=== PATIENT | female | born 1975 | race African-American/Black ===

== ENCOUNTER 2017-04-17 15:13 | Observation (INO) | payer OTHER ==
[2017-04-17] VITALS (7 sets, daily range): BP systolic 116–147; BP diastolic 72–86; PULSE 78–87; RESP 16–18; TEMP 98.2–99.4; O2SAT 97–100
[~2017-04-17] VITALS: Ht 170.2 cm; Wt 65.0 kg
[~2017-04-17 15:13] MED LIST: MAGICPED SWISH-SWAL; MEDR4PAK PO; PENI250T59 PO
[2017-04-17] MEDS ORDERED: SODIUM CHLORIDE 0.9% FLUSH 10 ML FLUSH IVF PRN (15:30)
--- NOTE | 2017-04-17 15:43 | PD ---
HPI Chief Complaint: Chest Pain Time Seen by Provider: 15:43 Travel History International Travel<30 days: No Contact w/Intl Traveler<30days: No Traveled to known affect area: No History of Present Illness HPI 41 year-old female with no significant medical history presents to emergency department for evaluation of chest pain. Chest pain is substernal, radiates to left axilla, intermittently over the last 2 weeks. Patient states she saw her primary care provider Dr. Butler who was concerned about this and advised she see a specialist. She has not been scheduled to see a specialist and she is not sure what type of specialist he was talking about. She states the pain has continued to occur whether she is at rest or doing activity around the house. This caused her to be concerned today so she came to the emergency department. It is not associated with shortness of breath, lightheaded sensation, or diaphoresis. She denies any recent illnesses, fever, chills. No cardiac history. She has no other symptoms to report. PFSH Past Medical History Diminished Hearing: No Immunizations Current: Yes Sickle Cell Disease: Yes (TRAIT) Tetanus Vaccination: Unknown Influenza Vaccination: No ?: Not : 4 Para: 4 Tubal Ligation: Yes Past Surgical History Abdominal Surgery: Yes (HAD A COLOSTOMY A INFANT,REVERSED,NO BOWEL PROBLEMS) Body Medical Devices: SICKLE CELL TRAIT Other Surgery: Yes (COLOSTOMY AN AND REVERSED) Social History Alcohol Use: No Tobacco Use: No Substance Use: No Allergies-Medications (Allergen,Severity, Reaction): Coded Allergies: Pollen Extract (Verified Allergy, Mild, SNEEZING, WATERY EYES, 04/17/17) Reported Meds & Prescriptions Reported Meds & Active Scripts Active No Active Prescriptions or Reported Medications Review of Systems Except as stated in HPI: all other systems reviewed are Neg Physical Exam Narrative GENERAL: Well-nourished female patient in no acute distress SKIN: Focused skin assessment warm/dry. HEAD: Atraumatic. Normocephalic. EYES: Pupils equal and round. No scleral icterus. No injection or drainage. ENT: No nasal bleeding or discharge. Mucous membranes pink and moist. NECK: Trachea midline. No JVD. CARDIOVASCULAR: Regular rate and rhythm. No murmur appreciated. RESPIRATORY: No accessory muscle use. Clear to auscultation. Breath sounds equal bilaterally. GASTROINTESTINAL: Abdomen soft, non-tender, nondistended. Hepatic and splenic margins not palpable. MUSCULOSKELETAL: No obvious deformities. No clubbing. No cyanosis. No edema. NEUROLOGICAL: Awake and alert. No obvious cranial nerve deficits. Motor grossly within normal limits. Normal speech. PSYCHIATRIC: Appropriate mood and affect; insight and judgment normal. Data Data Last Documented VS Vital Signs Date Time Temp Pulse Resp B/P Pulse Ox O2 Delivery O2 Flow Rate FiO2 04/17/17 16:07 87 18 118/72 99 04/17/17 16:07 Room Air 04/17/17 15:15 98.2 Orders Electrocardiogram (04/17/17 ) Basic Metabolic Panel (Bmp) (04/17/17 15:25) Ckmb (Isoenzyme) Profile (04/17/17 15:25) Complete Blood Count With Diff (04/17/17 15:25) Magnesium (Mg) (04/17/17 15:25) Prothrombin Time / Inr (Pt) (04/17/17 15:25) Act Partial Throm Time (Ptt) (04/17/17 15:25) Troponin I (04/17/17 15:25) Chest, Single Ap (04/17/17 15:25) Ecg Monitoring (04/17/17 15:25) Bilateral Bp Monitoring (04/17/17 15:25) Iv Access Insert/Monitor (04/17/17 15:25) Oximetry (04/17/17 15:25) Oxygen Administration (04/17/17 15:25) Sodium Chloride 0.9% Flush (Ns Flush) (04/17/17 15:30) CKMB (04/17/17 17:16) CKMB% (04/17/17 17:16) Admit Order (Ed Use Only) (04/17/17 18:30) Activity Bed Rest With Brp (04/17/17 18:30) Vital Signs (Adult) Q4H (04/17/17 18:30) Cardiac Rhythm .As Directed (04/17/17 18:30) Notify Dr: Other .PRN (04/17/17 18:30) Notify Parameters (04/17/17 18:30) Resp Oxygen Nasal Cannula (04/17/17 ) Diet Npo (04/18/17 Breakfast) Diet Heart Healthy (7/8/17 Dinner) Ckmb (Isoenzyme) Profile (04/17/17 20:15) Ckmb (Isoenzyme) Profile (04/17/17 23:15) Troponin I (04/17/17 20:15) Troponin I (04/17/17 23:15) Electrocardiogram (04/17/17 19:30) Electrocardiogram (04/17/17 22:30) ^ Obtain (04/17/17 18:30) Sodium Chloride 0.9% Flush (Ns Flush) (04/17/17 18:30) Sodium Chloride 0.9% Flush (Ns Flush) (04/17/17 21:00) Acetaminophen (Tylenol) (04/17/17 18:30) Ondansetron Inj (Zofran Inj) (04/17/17 18:30) Running Specialist / Telemetry CHARI.Q8H (04/17/17 18:30) Rohan Bilateral/Knee High CHARI.QSHIFT (04/17/17 18:30) CKMB (04/17/17 19:28) CKMB% (04/17/17 19:28) Labs Laboratory Tests Test 04/17/17 04/17/17 17:04 17:16 Prothrombin Time 10.7 SEC Prothromb Time International 1.0 RATIO Ratio Activated Partial 26.3 SEC Thromboplast Time White Blood Count 9.0 TH/MM3 Red Blood Count 4.63 MIL/MM3 Hemoglobin 12.6 GM/DL Hematocrit 38.3 % Mean Corpuscular Volume 82.7 FL Mean Corpuscular Hemoglobin 27.3 PG Mean Corpuscular Hemoglobin 33.0 % Concent Red Cell Distribution Width 17.1 % Platelet Count 148 TH/MM3 Mean Platelet Volume 9.6 FL Neutrophils (%) (Auto) 57.6 % Lymphocytes (%) (Auto) 27.7 % Monocytes (%) (Auto) 10.1 % Eosinophils (%) (Auto) 4.1 % Basophils (%) (Auto) 0.5 % Neutrophils # (Auto) 5.2 TH/MM3 Lymphocytes # (Auto) 2.5 TH/MM3 Monocytes # (Auto) 0.9 TH/MM3 Eosinophils # (Auto) 0.4 TH/MM3 Basophils # (Auto) 0.0 TH/MM3 CBC Comment AUTO DIFF Differential Comment AUTO DIFF CONFIRMED Sodium Level 141 MEQ/L Potassium Level 4.1 MEQ/L Chloride Level 107 MEQ/L Carbon Dioxide Level 25.3 MEQ/L Anion Gap 9 MEQ/L Blood Urea Nitrogen 8 MG/DL Creatinine 0.79 MG/DL Estimat Glomerular Filtration 98 ML/MIN Rate Random Glucose 70 MG/DL Calcium Level 9.5 MG/DL Magnesium Level 1.7 MG/DL Total Creatine Kinase 181 U/L Creatine Kinase MB 1.6 NG/ML Troponin I LESS THAN 0.02 NG/ML MDM Medical Decision Making Medical Screen Exam Complete: Yes Emergency Medical Condition: Yes Medical Record Reviewed: Yes Differential Diagnosis Chest wall pain versus pleurisy versus costochondritis versus ACS Narrative Course 41 year-old female presents to department for evaluation. Patient appears without distress. She is currently not having any pain. EKG is without acute abnormality. Lab work is without acute concern. Troponin is less than 0.02. Discussed the patient with my attending physician. She agrees that it is the patient's best interest for further evaluation and observation of the chest pain center. Plan is discussed with the patient and she is in agreement with the plan of care. Diagnosis Primary Impression: Chest pain Qualified Code: R07.9 - Chest pain, unspecified type Admitting Information Admitting Physician Requests: Observation Scripts No Active Prescriptions or Reported Meds Condition: Stable Ronel Millan Apr 17, 2017 15:43
--- NOTE | 2017-04-17 16:20 | RADRPT ---
EXAM DATE/TIME: 04/17/2017 15:51 [facility] COMPARISON: No previous studies available for comparison. INDICATIONS : Chest pain and short of breath. MEDICAL HISTORY : Sickle cell trait. SURGICAL HISTORY : None. ENCOUNTER: Initial ACUITY: 3 days PAIN SCORE: 9/10 LOCATION: Bilateral chest FINDINGS: A single view of the chest demonstrates the lungs to be symmetrically aerated without evidence of mas s, infiltrate or effusion. The cardiomediastinal contours are unremarkable. Osseous structures are intact. CONCLUSION: No acute disease. Rashawn Norwood MD on April 17, 2017 at 16:19 Board Certified Radiologist. This report was verified electronically.
[2017-04-17 17:31] LABS: APTT (PATIENT) 26.3 SEC (24.3-30.1); PROTHROMBIN TIME - PATIENT 10.7 SEC (9.8-11.6)
[2017-04-17 17:57] LABS: AUTOMATED NEUTROPHIL # 5.2 TH/MM3 (1.8-7.7); BASOPHIL % 0.5 % (0.0-2.0); EOSINOPHIL # 0.4 TH/MM3 (0-0.4); EOSINOPHIL % 4.1 % (0.0-4.0); HEMATOCRIT 38.3 % (35.0-46.0); LYMPH % 27.7 % (9.0-44.0); LYMPHOCYTE # 2.5 TH/MM3 (1.0-4.8); MEAN CELL VOLUME 82.7 FL (80.0-100.0); MEAN CORPUSCULAR HEMOGLOBIN 27.3 PG (27.0-34.0); MONO % 10.1 % (0.0-8.0); NEUT % 57.6 % (16.0-70.0); PLATELET COUNT 148 TH/MM3 (150-450); RED BLOOD COUNT 4.63 MIL/MM3 (4.00-5.30); RED CELL DISTRIBUTION WIDTH 17.1 % (11.6-17.2)
[2017-04-17 17:59] LABS: HEMO FLAGS AUTO DIFF
[2017-04-17 18:15] LABS: ANION GAP 9 MEQ/L (5-15); BICARBONATE 25.3 MEQ/L (21.0-32.0); BLOOD UREA NITROGEN 8 MG/DL (7-18); CHLORIDE 107 MEQ/L (98-107); CREATINE KINASE 181 U/L (26-192); GLOMERULAR FILTRATION RATE 98 ML/MIN (>89); MAGNESIUM 1.7 MG/DL (1.5-2.5); POTASSIUM 4.1 MEQ/L (3.5-5.1); SODIUM (NA) 141 MEQ/L (136-145)
[2017-04-17 18:28] LABS: CKMB 1.6 NG/ML (0.5-3.6)
[2017-04-17] MEDS ORDERED: SODIUM CHLORIDE 0.9% FLUSH 10 ML FLUSH IV FLUSH PRN (18:30)
[2017-04-17] MEDS ORDERED: ACETAMINOPHEN 500 MG CPLT PO PRN (18:30)
[2017-04-17] MEDS ORDERED: ONDANSETRON HCL 4 MG/2 ML VIAL IV PRN (18:30)
[2017-04-17 18:33] LABS: SCAN/DIFF AUTO DIFF CONFIRMED
[2017-04-17 20:29] LABS: CREATINE KINASE 143 U/L (26-192)
[2017-04-17] MEDS: SODIUM CHLORIDE 0.9% FLUSH 10 ML FLUSH IV FLUSH SCH (20:32)
[2017-04-17 20:42] LABS: CKMB 1.2 NG/ML (0.5-3.6)
--- NOTE | 2017-04-17 21:41 | EKG ---
Date Performed: 04/17/2017 Time Performed: 19:24:31 PTAGE: 41 years EKG: Sinus rhythm NORMAL ECG PREVIOUS TRACING : 04/17/2017 15.51 Compared to prior tracing no significant change DOCTOR: Ayan Neal Interpretating Date/Time 04/17/2017 21:40:50
--- NOTE | 2017-04-17 21:45 | EKG ---
Date Performed: 04/17/2017 Time Performed: 15:51:40 PTAGE: 41 years EKG: Sinus rhythm NORMAL ECG PREVIOUS TRACING : 12/10/2003 09.07 Compared to prior tracing no significant change DOCTOR: Ayan Neal Interpretating Date/Time 04/17/2017 21:44:58
[2017-04-17 23:18] LABS: CREATINE KINASE 137 U/L (26-192)
[2017-04-17 23:30] LABS: CKMB 1.5 NG/ML (0.5-3.6)
[2017-04-18 00:45] VITALS: BP 132/77; PULSE 93; RESP 19; TEMP 98.4; O2SAT 99
[2017-04-18 04:22] VITALS: BP 109/66; PULSE 82; RESP 15; TEMP 99; O2SAT 99
[2017-04-18 07:15] VITALS: O2SAT 98
[2017-04-18 07:38] VITALS: PULSE 75
[2017-04-18 08:10] VITALS: BP 102/66; PULSE 87; RESP 17; TEMP 98.5; O2SAT 98
[2017-04-18] MEDS: SODIUM CHLORIDE 0.9% FLUSH 10 ML FLUSH IV FLUSH SCH (08:59)
--- NOTE | 2017-04-18 09:34 | HHI.HP ---
HPI Primary Care Physician Chris Butler MD Past Family Social History Allergies: Coded Allergies: Pollen Extract (Verified Allergy, Mild, SNEEZING, WATERY EYES, 04/17/17) Reported Medications Reported Meds & Active Scripts Active No Active Prescriptions or Reported Medications Active Ordered Medications Current Medications Medications (Trade) Dose Ordered Sig/Paige Route Start Time Stop Time Status Last Admin (NS Flush) 2 ml UNSCH PRN IVF 04/17/17 15:30 (NS Flush) 2 ml UNSCH PRN IV FLUSH 04/17/17 18:30 (NS Flush) 2 ml BID IV FLUSH 04/17/17 21:00 04/18/17 08:59 (Tylenol) 500 mg Q4H PRN PO 04/17/17 18:30 (Zofran Inj) 4 mg Q6H PRN IV 04/17/17 18:30 Physical Exam Vital Signs Vital Signs Date Time Temp Pulse Resp B/P Pulse Ox O2 Delivery O2 Flow Rate FiO2 04/18/17 08:10 98.5 87 17 102/66 98 04/18/17 04:22 99.0 82 15 109/66 99 04/18/17 00:45 98.4 93 19 132/77 99 04/17/17 20:15 78 04/17/17 20:04 99.4 85 16 123/86 97 04/17/17 19:50 100 04/17/17 19:10 80 18 118/79 99 Room Air 04/17/17 16:07 87 18 118/72 99 04/17/17 16:07 99 Room Air 04/17/17 16:07 99 Room Air 04/17/17 15:32 85 18 116/74 98 Room Air 04/17/17 15:32 83 18 98 Room Air 04/17/17 15:15 98.2 81 16 147/77 98 Laboratory Laboratory Tests Test 04/17/17 04/17/17 04/17/17 04/17/17 17:04 17:16 19:28 22:30 Prothrombin Time 10.7 Prothromb Time International 1.0 Ratio Activated Partial 26.3 Thromboplast Time White Blood Count 9.0 Red Blood Count 4.63 Hemoglobin 12.6 Hematocrit 38.3 Mean Corpuscular Volume 82.7 Mean Corpuscular Hemoglobin 27.3 Mean Corpuscular Hemoglobin 33.0 Concent Red Cell Distribution Width 17.1 Platelet Count 148 Mean Platelet Volume 9.6 Neutrophils (%) (Auto) 57.6 Lymphocytes (%) (Auto) 27.7 Monocytes (%) (Auto) 10.1 Eosinophils (%) (Auto) 4.1 Basophils (%) (Auto) 0.5 Neutrophils # (Auto) 5.2 Lymphocytes # (Auto) 2.5 Monocytes # (Auto) 0.9 Eosinophils # (Auto) 0.4 Basophils # (Auto) 0.0 CBC Comment AUTO DIFF Differential Comment AUTO DIFF CONFIRMED Sodium Level 141 Potassium Level 4.1 Chloride Level 107 Carbon Dioxide Level 25.3 Anion Gap 9 Blood Urea Nitrogen 8 Creatinine 0.79 Estimat Glomerular Filtration 98 Rate Random Glucose 70 Calcium Level 9.5 Magnesium Level 1.7 Total Creatine Kinase 181 143 137 Creatine Kinase MB 1.6 1.2 1.5 Troponin I LESS THAN 0.02 LESS THAN 0.02 LESS THAN 0.02 Result Diagram: 04/17/17 1716 04/17/17 171 Assessment and Plan Assessment and Plan Patient seen after review with PA. S: Two weeks atypical mid chest pain with no precipitating or rel factors and no assoc. sx. Works at [employer], sometimes strenuous. O: As reported but severe tenderness along costo condral jcts. Has RO for cardiac A: Classic costo-condritis P: Discussed treatment with NSAIDS, heat/cold OK to discharge to FU with PCP Clemente Luna MD Apr 18, 2017 09:34
--- NOTE | 2017-04-18 09:35 | HHI.HP ---
[facility] Primary Care Physician Chris Butler MD Chief Complaint Chest pain History of Present Illness This is a 41-year-old female that presents to ED via private vehicle with family with a complaint of 2 weeks of intermittent chest discomfort. When asked to describe the pain she states "a lot of pain." She states nothing in particular seems bring on the discomfort. One time she was short of breath. No nausea or diaphoresis. Cannot recall any injuries a recent illnesses. Denies recent travel. Denies . She saw nothing to make the pain better or worse when it occurs. She states it occurs it last for a few minutes. Review of Systems General: Patient denies fevers, chills recent, and recent travel HEENT: Patient denies headache, sore throat, difficulty swallowing. Cardiovascular: Has the chest discomfort as mentioned above. Denies sensation of heart beating rapidly or irregularly. No syncope. Respiratory: She had one episode of shortness of breath. Denies inspirational chest discomfort. Denies coughing wheezing or hemoptysis. GI: Patient denies nausea, vomiting, diarrhea, abdominal pain, bloody stools. Musculoskeletal: Patient denies joint pain or edema. Denies calf pain or edema. Neurovascular: Patient denies numbness, tingling, weakness in extremities. Denies headache. Endocrine: Denies polyuria and polydipsia. Hematologic: Denies easy bruising. Skin: Denies rash or itching. Past Family Social History Allergies: Coded Allergies: Pollen Extract (Verified Allergy, Mild, SNEEZING, WATERY EYES, 04/17/17) Past Medical History Denies hypertension, hyperlipidemia, diabetes, and CAD. Past Surgical History Tubal ligation. Reported Medications Reported Meds & Active Scripts Active No Active Prescriptions or Reported Medications Active Ordered Medications Current Medications Medications (Trade) Dose Ordered Sig/Paige Route Start Time Stop Time Status Last Admin (NS Flush) 2 ml UNSCH PRN IVF 04/17/17 15:30 (NS Flush) 2 ml UNSCH PRN IV FLUSH 04/17/17 18:30 (NS Flush) 2 ml BID IV FLUSH 04/17/17 21:00 04/18/17 08:59 (Tylenol) 500 mg Q4H PRN PO 04/17/17 18:30 (Zofran Inj) 4 mg Q6H PRN IV 04/17/17 18:30 Family History Denies family history of CAD. Social History Patient is a nonsmoker. Denies alcohol or illicit drugs. Physical Exam Vital Signs Vital Signs Date Time Temp Pulse Resp B/P Pulse Ox O2 Delivery O2 Flow Rate FiO2 04/18/17 08:10 98.5 87 17 102/66 98 04/18/17 04:22 99.0 82 15 109/66 99 04/18/17 00:45 98.4 93 19 132/77 99 04/17/17 20:15 78 04/17/17 20:04 99.4 85 16 123/86 97 04/17/17 19:50 100 04/17/17 19:10 80 18 118/79 99 Room Air 04/17/17 16:07 87 18 118/72 99 04/17/17 16:07 99 Room Air 04/17/17 16:07 99 Room Air 04/17/17 15:32 85 18 116/74 98 Room Air 04/17/17 15:32 83 18 98 Room Air 04/17/17 15:15 98.2 81 16 147/77 98 Physical Exam GENERAL: This is a well-nourished, well-developed patient, in no apparent distress. Patient speaks in clear complete sentences. Patient is pleasant. Patient was examined with a female florist at bedside. HEENT: Head is atraumatic and normocephalic. Neck is supple without lymphadenopathy and trachea is midline. No JVD or carotid bruits. CARDIOVASCULAR: Regular rate and rhythm without murmurs, gallops, or rubs. RESPIRATORY: Clear to auscultation. Breath sounds equal bilaterally. No wheezes , rales, or rhonchi. Chest wall is tender just left of the sternum reproducing the same discomfort that she has been having. No use of accessory muscles. GASTROINTESTINAL: Abdomen is nontender, nondistended. Abdomen soft. No obvious pulsatile mass or bruit. No CVA tenderness. Strong femoral pulses bilaterally. Normal bowel sounds in all quadrants. MUSCULOSKELETAL: Patient is moving upper and lower extremities freely. No calf tenderness or edema, no Homans sign. Strong pulses in upper and lower extremities. NEUROLOGICAL: Patient is alert and oriented. Cranial nerves 2-12 are grossly intact. No focal deficits and speech is clear. SKIN: No rash and turgor is normal. Laboratory Laboratory Tests Test 04/17/17 04/17/17 04/17/1717 17:04 17:16 19:28 22:30 Prothrombin Time 10.7 Prothromb Time International 1.0 Ratio Activated Partial 26.3 Thromboplast Time White Blood Count 9.0 Red Blood Count 4.63 Hemoglobin 12.6 Hematocrit 38.3 Mean Corpuscular Volume 82.7 Mean Corpuscular Hemoglobin 27.3 Mean Corpuscular Hemoglobin 33.0 Concent Red Cell Distribution Width 17.1 Platelet Count 148 Mean Platelet Volume 9.6 Neutrophils (%) (Auto) 57.6 Lymphocytes (%) (Auto) 27.7 Monocytes (%) (Auto) 10.1 Eosinophils (%) (Auto) 4.1 Basophils (%) (Auto) 0.5 Neutrophils # (Auto) 5.2 Lymphocytes # (Auto) 2.5 Monocytes # (Auto) 0.9 Eosinophils # (Auto) 0.4 Basophils # (Auto) 0.0 CBC Comment AUTO DIFF Differential Comment AUTO DIFF CONFIRMED Sodium Level 141 Potassium Level 4.1 Chloride Level 107 Carbon Dioxide Level 25.3 Anion Gap 9 Blood Urea Nitrogen 8 Creatinine 0.79 Estimat Glomerular Filtration 98 Rate Random Glucose 70 Calcium Level 9.5 Magnesium Level 1.7 Total Creatine Kinase 181 143 137 Creatine Kinase MB 1.6 1.2 1.5 Troponin I LESS THAN 0.02 LESS THAN 0.02 LESS THAN 0.02 Result Diagram: 04/17/17171504/17/171715 Assessment and Plan Assessment and Plan * Atypical chest pain: Patient has had serial cardiac enzymes and EKGs for ruling out purposes. She has been seen by Dr. Luna of cardiology in the chest pain center. Her discomfort is of musculoskeletal etiology and will be discharged home at this time with instructions to follow-up with her local primary care physician. Patient is stable at this time. She is agreeable to this plan. Austyn Escamilla Apr 18, 2017 09:35
--- NOTE | 2017-04-18 09:38 | HHI.DCPOC ---
Discharge Care Plan Diagnosis: (1) Chest pain, atypical Goals to Promote Your Health * To prevent worsening of your condition and complications * To maintain your health at the optimal level Directions to Meet Your Goals Take your medications as prescribed Follow your dietary instruction Follow activity as directed Keep your appointments as scheduled Take your immunizations and boosters as scheduled If your symptoms worsen call your PCP, if no PCP go to Urgent Care Center or Emergency Room Smoking is Dangerous to Your Health. Avoid second hand smoke Call the 24-hour hour crisis hotline for domestic abuse at Austyn Escamilla Apr 18, 2017 09:38
--- NOTE | 2017-04-18 12:10 | EKG ---
Date Performed: 04/17/2017 Time Performed: 22:41:20 PTAGE: 41 years EKG: Sinus rhythm NORMAL ECG PREVIOUS TRACING : 04/17/2017 19.24 DOCTOR: Clemente Luna Interpretating Date/Time 04/18/2017 12:08:57
== END 2017-04-18 11:20 | disposition home or self-care (01) ==
LOC: NEPE 15:13 → NEDA 18:33 → NEPFCDU 19:49
PROVIDERS: ADMIT Internal Medicine Interventional Cardiology; ATTEND Internal Medicine Interventional Cardiology
DX: R07.89 Other chest pain (principal); R06.02 Shortness of breath; R07.2 Precordial pain; D57.3 Sickle-cell trait
CPT/HCPCS: 71010; 80048; 82550; 82552; 83735; 84484; 85025; 85610; 85730; 93005; 99285; G0378

== ENCOUNTER 2017-09-08 09:42 | Emergency (ER) | payer OTHER ==
[~2017-09-08] VITALS: Ht 167.6 cm; Wt 60.0 kg
[2017-09-08] MEDS ORDERED: IOHEXOL 350 MG/ML 10 ML VIAL (for RAD DIAG) IVCONTRAST ONE (09:43)
[2017-09-08 09:57] VITALS: BP 134/84; PULSE 123; RESP 22; TEMP 101.2; O2SAT 99
--- NOTE | 2017-09-08 11:01 | PD ---
HPI Chief Complaint: Cold / Flu Symptoms Time Seen by Provider: 10:59 Travel History International Travel<30 days: No Contact w/Intl Traveler<30days: No Traveled to known affect area: No History of Present Illness HPI 41 YO F presents to the ED via EMS for evaluation of 6 week history of sore throat, nonproductive cough. She states that today she began to experience accompanying chest pain, described as a tightness, worsened with breathing which prompted her visit today. She endorses fevers and chills. She endorses difficulty swallowing. He endorses nausea. She endorses palpitations. She states her cough is nonproductive. She endorses previous similar episodes of palpitations, chest pain and breathing difficulties. She had a cardiac workup a few months ago that was negative. She endorses receiving the flu vaccine this year. The patient was prescribed clindamycin but has been noncompliant with the medication. PFSH Past Medical History Medical History: Denies Significant Hx Cardiovascular Problems: No Diminished Hearing: No Immunizations Current: Yes Sickle Cell Disease: Yes (TRAIT) Tetanus Vaccination: < 5 Years ?: Not : 4 Para: 4 Tubal Ligation: Yes Past Surgical History Abdominal Surgery: Yes (HAD A COLOSTOMY A ,REVERSED,NO BOWEL PROBLEMS) Body Medical Devices: SICKLE CELL TRAIT Other Surgery: Yes (COLOSTOMY AN INFANT AND REVERSED) Social History Alcohol Use: No Tobacco Use: No Substance Use: No Allergies-Medications (Allergen,Severity, Reaction): Coded Allergies: pollen extracts (Unverified Allergy, Mild, SNEEZING, WATERY EYES, 09/08/17 ) Reported Meds & Prescriptions Reported Meds & Active Scripts Active Magic Mouthwash Adult Liq (Multi-Ingredient Mouthwash/Gargle) 120 Ml Susp 10 Ml SWISH-SPIT ACHS 5 Days Each 5mL contains: Nystatin 200,000units, Diphenhydramine 4.25mg, Viscous Lidocaine 10mg, Hinson syrup 0.8 mL Proair Hfa 8.5 GM Inh (Albuterol Sulfate) 90 Mcg/Act Aer 1 Puff INH Q4H PRN 108 mcg/actuation Prednisone 20 Mg Tab 20 Mg PO ONCE Penicillin V Potassium 500 Mg Tab 500 Mg PO BID 10 Days Review of Systems Except as stated in HPI: all other systems reviewed are Neg Physical Exam Narrative GENERAL: Well-nourished, well-developed ill-appearing, hyperventilating black female. PSYCHIATRIC: Anxious SKIN: Warm and dry. HEAD: Normocephalic. Atraumatic. EYES: No scleral icterus. No injection or drainage. PERRLA. EOMI. ENT: Pearly issa tympanic membranes bilaterally. Nasal mucosa is moist. Posterior oropharynx erythematous, edematous with seema blood noted. Mallampati class III. NECK: Supple, trachea midline. No JVD. Tender left submandibular lymphadenopathy. CARDIOVASCULAR: Regular rate and rhythm without murmurs, gallops, or rubs. RESPIRATORY: Breath sounds equal bilaterally. There are mild end expiratory wheezing. No accessory muscle use. GASTROINTESTINAL: Abdomen soft, non-tender, nondistended. + Bowel sounds MUSCULOSKELETAL: No cyanosis, or edema. Noted to ambulate with a normal gait. BACK: Nontender without obvious deformity. No CVA tenderness. Data Data Last Documented VS Vital Signs Date Time Temp Pulse Resp B/P (MAP) Pulse Ox O2 Delivery O2 Flow Rate FiO2 09/08/17 15:39 (90) 09/08/17 15:39 99.5 102 20 98 Room Air Orders Orders Sepsis Workup Initiated (09/08/17 ) Electrocardiogram (09/08/17 11:24) Complete Blood Count With Diff (09/08/17 11:24) Comprehensive Metabolic Panel (09/08/17 11:24) Prothrombin Time / Inr (Pt) (09/08/17 11:24) Act Partial Throm Time (Ptt) (09/08/17 11:24) Lactic Acid Sepsis Protocol (09/08/17 11:24) Magnesium (Mg) (09/08/17 11:24) Ckmb (Isoenzyme) Profile (09/08/17 11:24) Troponin I (09/08/17 11:24) Urinalysis - C+S If Indicated (09/08/17 11:24) Influenzae A/B Antigen (09/08/17 11:24) Blood Culture (09/08/17 11:24) Chest, Single Ap (09/08/17 11:24) Blood Glucose (09/08/17 11:24) Ecg Monitoring (09/08/17 11:24) Iv Access Insert/Monitor (09/08/17 11:24) Oximetry (09/08/17 11:24) Morphine Inj (Morphine Inj) (09/08/17 11:30) Ondansetron Inj (Zofran Inj) (09/08/17 11:30) Sodium Chlor 0.9% 1000 Ml Inj (Ns 1000 M (09/08/17 11:24) Sodium Chlor 0.9% 1000 Ml Inj (Ns 1000 M (09/08/17 11:24) Ed Urine Pregnancytest Poc (09/08/17 11:24) Group A Rapid Strep Screen (09/08/17 11:24) Monoscreen (09/08/17 11:30) Ct Soft Tiss Neck W Iv Cont (09/08/17 11:30) Methylprednisolone So Succ Inj (Solumedr (09/08/17 11:30) Acetaminophen 650 Mg/20 Ml Liq (Tylenol (09/08/17 11:45) Albuterol Neb (Albuterol Neb) (09/08/17 11:45) Strep Culture (Group A) (09/08/17 12:00) CKMB (09/08/17 11:45) CKMB% (09/08/17 11:45) Iohexol 350 Inj (Omnipaque 350 Inj) (09/08/17 09:43) Amoxicil-Clavulanate (Augmentin) (09/08/17 15:15) Penicillin V Potassium (Veetids) (09/08/17 15:15) Ed Discharge Order (09/08/17 15:18) Labs Laboratory Tests Test 09/08/17 11:35 09/08/17 11:45 09/08/17 11:50 Urine Color LIGHT-YELLOW Urine Turbidity CLEAR Urine pH 8.5 Urine Specific [place] 1.010 Urine Protein NEG mg/dL Urine Glucose (UA) NEG mg/dL Urine Ketones NEG mg/dL Urine Occult Blood NEG Urine Nitrite NEG Urine Bilirubin NEG Urine Urobilinogen LESS THAN 2.0 MG/DL Urine Leukocyte Esterase NEG Urine RBC 1 /hpf Urine Squamous Epithelial Cells <1 /hpf Microscopic Urinalysis Comment CATH-CULT NOT IND White Blood Count 6.9 TH/MM3 Red Blood Count 4.45 MIL/MM3 Hemoglobin 12.5 GM/DL Hematocrit 36.5 % Mean Corpuscular Volume 82.1 FL Mean Corpuscular Hemoglobin 28.1 PG Mean Corpuscular Hemoglobin Concent 34.2 % Red Cell Distribution Width 16.1 % Platelet Count 208 TH/MM3 Mean Platelet Volume 9.4 FL Neutrophils (%) (Auto) 77.1 % Lymphocytes (%) (Auto) 5.8 % Monocytes (%) (Auto) 15.8 % Eosinophils (%) (Auto) 0.9 % Basophils (%) (Auto) 0.4 % Neutrophils # (Auto) 5.3 TH/MM3 Lymphocytes # (Auto) 0.4 TH/MM3 Monocytes # (Auto) 1.1 TH/MM3 Eosinophils # (Auto) 0.1 TH/MM3 Basophils # (Auto) 0.0 TH/MM3 CBC Comment DIFF FINAL Differential Comment Prothrombin Time 10.7 SEC Prothromb Time International Ratio 1.0 RATIO Activated Partial Thromboplast Time 26.5 SEC Blood Urea Nitrogen 5 MG/DL Creatinine 0.84 MG/DL Random Glucose 94 MG/DL Total Protein 7.8 GM/DL Albumin 3.7 GM/DL Calcium Level 8.9 MG/DL Magnesium Level 1.6 MG/DL Alkaline Phosphatase 61 U/L Aspartate Amino Transf (AST/SGOT) 33 U/L Alanine Aminotransferase (ALT/SGPT) 24 U/L Total Bilirubin 0.4 MG/DL Sodium Level 137 MEQ/L Potassium Level 3.8 MEQ/L Chloride Level 107 MEQ/L Carbon Dioxide Level 23.4 MEQ/L Anion Gap 7 MEQ/L Estimat Glomerular Filtration Rate 91 ML/MIN Total Creatine Kinase 198 U/L Creatine Kinase MB 1.2 NG/ML Creatine Kinase MB % 0.6 % Troponin I LESS THAN 0.02 NG/ML Lactic Acid Level 2.0 mmol/L Monoscreen NEG MDM Medical Decision Making Medical Screen Exam Complete: Yes Emergency Medical Condition: Yes Differential Diagnosis URI versus pharyngitis versus strep pharyngitis versus peritonsillar abscess versus asthma versus anxiety versus sepsis versus other Narrative Course 41-year-old female presents to the ED via EMS for evaluation of 6 week history of sore throat and nonproductive cough. She states that today she began experiencing accompanying chest pain, tightness, worsened with breathing which prompted her to come to the ED. She endorses fever, chills, difficulty swallowing, nausea, palpitations. She states that she's had previous episodes of chest pain with shortness of breath, cardiac workup performed a few months ago was negative. She endorses receiving the flu vaccine. Noncompliant with clindamycin prescribed a week or so ago. Patient's febrile and tachycardic on presentation. On exam the patient is ill-appearing. Pearly issa tympanic membranes bilaterally. Posterior oropharynx with erythema, edema, seema blood. No exudates noted. Patient has mild pelvic class III, evaluation somewhat limited. Tender left-sided lymphadenopathy. Mild exudate or a wheezing, breath sounds otherwise clear bilaterally. She is very anxious appearing. IV was established. Patient was administered IV Solu-Medrol, DuoNeb 3, IV morphine, 650 Tylenol by mouth. Sepsis fluid boluses ordered. CBC: WBC 6.9. Hemoglobin 12.5. Chemistries unremarkable. Cardiac enzymes negative times one. EKG rate 92, sinus rhythm. Normal intervals. Normal axis. No acute ST changes. Similar to 04/17/17. No culture indicated of the UA. Rapid strep Negative. Influenza Swab Negative. Monospot Negative. Bedside urine test negative. CXR: No acute disease per radiology read. CT soft tissue neck: Prominent right tonsil and tongue base without abscess. On recheck the patient reports improvement of her symptoms. We'll attempt to have her complete a course of penicillin G, brief course of steroids, anti- inflammatories and Magic mouthwash. She is provided with a pro-air rescue inhaler. She is instructed take all the medication as prescribed. I discussed the importance of the timing of the medications for killing any bacteria and her ability to return to normal activities. She indicated understanding of the discharge instructions. She is stable and discharged home. Diagnosis Primary Impression: Pharyngitis Qualified Codes: J02.9 - Acute pharyngitis, unspecified Additional Impression: SOB (shortness of breath) Referrals: Ear / Nose / Throat Specialist Patient Instructions: Anxiety (ED), General Instructions, Pharyngitis (ED) Additional Instructions: Rest, hydrate. Take all antibiotics as they are prescribed, even if your symptoms resolve. Take steroids as they are prescribed. Use Magic mouthwash as needed. This medication can be sedating so spitted out a few more active during the day. You may swallow it at nighttime to help with sleeping. Use rescue inhaler as needed for wheezing or shortness of breath. 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 Return to the ED for any urgent or emergent medical condition. Med/Other Pt SpecificInfo: Prescription(s) given Scripts Voopveem-Yzkttpzlbdpufdx-Pjgmyvevp Liq (Magic Mouthwash Adult Liq) 120 Ml Susp 10 ML SWISH-SPIT ACHS for Sore Throat for 5 Days, #120 ML 0 Refills Each 5mL contains: Nystatin 200,000units, Diphenhydramine 4.25mg, Viscous Lidocaine 10mg, Hinson syrup 0.8 mL Prov: Indiana Galvin MD 09/08/17 Albuterol 8.5 GM Inh (Proair Hfa 8.5 GM Inh) 90 Mcg/Act Aer 1 PUFF INH Q4H Y for SHORTNESS OF BREATH, #1 INHALER 0 Refills 108 mcg/actuation Prov: Indiana Galvin MD 09/08/17 Prednisone (Prednisone) 20 Mg Tab 20 MG PO ONCE, #5 TAB 0 Refills Prov: Indiana Galvin MD 09/08/17 Penicillin V Potassium (Penicillin V Potassium) 500 Mg Tab 500 MG PO BID for Infection for 10 Days, #20 TAB 0 Refills Prov: Indiana Galvin MD 09/08/17 Disposition: 01 DISCHARGE HOME Condition: Stable Zoraida Hebert Sep 08, 2017 11:01
[2017-09-08] MEDS ORDERED: SODIUM CHLOR 0.9% 1000 ML INJ 1,000 ML IV ONE (11:24)
[2017-09-08] MEDS ORDERED: SODIUM CHLOR 0.9% 1000 ML INJ 800 ML IV ONE (11:24)
[2017-09-08] MEDS ORDERED: methylPREDNISolone SOD SUCC 125 MG/2 ML VIAL IV PUSH ONE (11:30)
[2017-09-08] MEDS ORDERED: MORPHINE SULFATE 8 MG/ML INJ IV PUSH ONE (11:30)
[2017-09-08] MEDS ORDERED: ONDANSETRON HCL 4 MG/2 ML VIAL IV PUSH ONE (11:30)
[2017-09-08] MEDS ORDERED: ACETAMINOPHEN 650 MG/20.3 ML UDC PO ONE (11:45)
--- NOTE | 2017-09-08 12:07 | RADRPT ---
EXAM DATE/TIME: 09/08/2017 11:55 [facility] COMPARISON: CHEST SINGLE AP, April 17, 2017, 15:51. INDICATIONS : Nausea, vomiting, fever x5 weeks. MEDICAL HISTORY : None. SURGICAL HISTORY : None. ENCOUNTER: Initial ACUITY: 2 months PAIN SCORE: 10/10 LOCATION: Bilateral chest FINDINGS: A single view of the chest demonstrates the lungs to be symmetrically aerated without evidence of mas s, infiltrate or effusion. The cardiomediastinal contours are unremarkable. Osseous structures are intact. CONCLUSION: No acute disease. Idris Hair MD FACR on September 08, 2017 at 12:05 Board Certified Radiologist. This report was verified electronically.
[2017-09-08] MEDS: RESP: ALBUTEROL 2.5 MG/3 ML NEB (SCH) INH (12:08)
[2017-09-08 12:10] VITALS: BP 123/59; PULSE 94; RESP 29; O2SAT 97
[2017-09-08 12:24] LABS: AUTOMATED NEUTROPHIL # 5.3 TH/MM3 (1.8-7.7); BASOPHIL % 0.4 % (0.0-2.0); EOSINOPHIL # 0.1 TH/MM3 (0-0.4); EOSINOPHIL % 0.9 % (0.0-4.0); HEMATOCRIT 36.5 % (35.0-46.0); HEMO FLAGS DIFF FINAL; LYMPH % 5.8 % (9.0-44.0); LYMPHOCYTE # 0.4 TH/MM3 (1.0-4.8); MEAN CELL VOLUME 82.1 FL (80.0-100.0); MEAN CORPUSCULAR HEMOGLOBIN 28.1 PG (27.0-34.0); MEAN CORPUSCULAR HGB CONC 34.2 % (32.0-36.0); MONO % 15.8 % (0.0-8.0); NEUT % 77.1 % (16.0-70.0); PLATELET COUNT 208 TH/MM3 (150-450); RED BLOOD COUNT 4.45 MIL/MM3 (4.00-5.30); RED CELL DISTRIBUTION WIDTH 16.1 % (11.6-17.2); WHITE BLOOD COUNT 6.9 TH/MM3 (4.0-11.0)
[2017-09-08 12:28] LABS: BLOOD, URINE NEG (NEG); GLUCOSE,URINE NEG (NEG); KETONE, URINE NEG (NEG); NITRITE,URINE NEG (NEG); PH, URINE 8.5 (5.0-8.5); SQUAMOUS EPITHELIAL CELL URINE <1 /hpf (0-5); URINE COLOR LIGHT-YELLOW (YELLW/STRAW)
[2017-09-08 12:29] LABS: COMMENT (UR) CATH-CULT NOT IND; CULTURE IF INDICATED CATH CULTURE NOT IND
[2017-09-08 12:34] LABS: APTT (PATIENT) 26.5 SEC (24.3-30.1); PROTHROMBIN TIME - PATIENT 10.7 SEC (9.8-11.6)
[2017-09-08 12:50] LABS: ANION GAP 7 MEQ/L (5-15); AST (GOT) 33 U/L (15-37); BICARBONATE 23.4 MEQ/L (21.0-32.0); BLOOD UREA NITROGEN 5 MG/DL (7-18); CHLORIDE 107 MEQ/L (98-107); GLOMERULAR FILTRATION RATE 91 ML/MIN (>89); MAGNESIUM 1.6 MG/DL (1.5-2.5); POTASSIUM 3.8 MEQ/L (3.5-5.1); SODIUM (NA) 137 MEQ/L (136-145)
[2017-09-08 12:59] LABS: ALKALINE PHOSPHATASE 61 U/L (45-117); ALT (GPT) 24 U/L (10-53); CREATINE KINASE 198 U/L (26-192); TOTAL BILIRUBIN ADULT 0.4 MG/DL (0.2-1.0)
[2017-09-08 13:13] LABS: CKMB 1.2 NG/ML (0.5-3.6)
--- NOTE | 2017-09-08 14:38 | RADRPT ---
EXAM DATE/TIME: 09/08/2017 14:12 [facility] COMPARISON: No previous studies available for comparison. INDICATIONS : Sore throat, difficulty swallowing. IV CONTRAST: 65 cc Omnipaque 350 (iohexol) IV RADIATION DOSE: 15.86 CTDIvol (mGy) MEDICAL HISTORY : None SURGICAL HISTORY : Tubal ligation. ENCOUNTER: Initial ACUITY: 2 days PAIN SCALE: 4/10 LOCATION: neck TECHNIQUE: Volumetric scanning of the neck was performed. Using automated exposure control and adjustment of th e mA and/or kV according to patient size, radiation dose was kept as low as reasonably achievable to obtain optimal diagnostic quality images. DICOM format image data is available electronically for r eview and comparison. FINDINGS: The right tonsil and base of the tongue are prominent without abscess. Bath tonsils appear kristen l. There is no adenopathy.. Thyroid appears normal. CONCLUSION: Prominent right tonsil and base of tongue without abscess. Idris Hair MD FACR on September 08, 2017 at 14:34 Board Certified Radiologist. This report was verified electronically.
[2017-09-08] MEDS ORDERED: AMOXICILLIN/CLAVULANATE K 500 MG TAB PO ONE (15:15)
[2017-09-08] MEDS ORDERED: PENICILLIN V POTASSIUM 500 MG TAB PO ONE (15:15)
[2017-09-08] MEDS ORDERED: PENI500T PO (15:18)
[2017-09-08] MEDS ORDERED: MAGICADU2 SWISH-SPIT (15:18)
[2017-09-08] MEDS ORDERED: PRED20 PO (15:18)
[2017-09-08] MEDS ORDERED: ALBUAER3 INH (15:18)
[2017-09-08 15:39] VITALS: BP 130/71; PULSE 102; RESP 20; TEMP 99.5; O2SAT 98
--- NOTE | 2017-09-09 16:05 | EKG ---
Date Performed: 09/08/2017 Time Performed: 12:14:04 PTAGE: 41 years EKG: Sinus rhythm NONSPECIFIC T-WAVE ABNORMALITY BORDERLINE ECG Since PREVIOUS TRACING , no significant change noted PREVIOUS TRACIN09/08/2017 12.13 DOCTOR: Mal Mchugh Interpretating Date/Time 09/09/2017 16:04:16
== END 2017-09-08 15:54 | disposition home or self-care (01) ==
LOC: NEPE 09:42
DX: J02.9 Acute pharyngitis, unspecified (principal); R06.02 Shortness of breath; R05 Cough; R07.9 Chest pain, unspecified; D57.3 Sickle-cell trait; R94.31 Abnormal electrocardiogram [ECG] [EKG]; Z79.899 Other long term (current) drug therapy
CPT/HCPCS: 70491; 71010; 80053; 81001; 82550; 82552; 83605; 83735; 84484; 84703; 85025; 85610; 85730; 86308; 87040; 87081; 87804; 87880; 93005; 94640; 94664; 96361; 96374; 96375; 99285; J2270; J2405; J2930; J7030; J7613; Q9967